=== PATIENT | female | born 1965 | race Caucasian/White ===

== ENCOUNTER 2017-06-21 17:12 | Emergency (ER) | payer SELFPAY ==
[2017-06-21] MEDS ORDERED: Albuterol/Ipratropium 3.0-0.5 MG/3 ML Neb Soln NEB ONE (17:19)
[2017-06-21] MEDS ORDERED: Ketorolac 60 MG/2 ML SDV IM ONE (17:21)
[2017-06-21] MEDS ORDERED: Sodium Chloride 0.9% 1,000 ML IV ONE (18:33)
[2017-06-21] MEDS ORDERED: Folic Acid 1 MG Tab PO ONE (18:34)
[2017-06-21] MEDS ORDERED: Thiamine 100 MG Tab PO ONE (18:34)
[2017-06-21] MEDS ORDERED: Multivitamin Tab PO STA (18:35)
[2017-06-21] MEDS ORDERED: Sodium Chloride 0.9% 10 ML Syringe FLUSH PRN (19:11)
--- NOTE | 2017-06-21 20:12 | EDM.PDOC ---
ED HPI GENERAL MEDICAL PROBLEM - General Chief Complaint: Respiratory Problem Stated Complaint: SOB Time Seen by Provider: 06/21/17 17:20 Source of Information: Reports: Patient, EMS History Limitations: Reports: Intoxication - History of Present Illness INITIAL COMMENTS - FREE TEXT/NARRATIVE: 52 y.o.w.f smoker, came to the ed from a bar after she was drinking from last night till noon today. Pt was intoxicated and was coughing intermittently, dry cough. Pt is currently residing in a [facility] house in [place] and had "off last night", when she decided to drink. No family is present. No N/V/D CP or dizziness. BP 127/76 puse 88 Temp 98. RR 18 O2 sat 98% on RA Onset: Today Onset Date: 06/21/17 Onset Time: 12:00 Duration: Intermittent Location: Reports: Chest, Generalized Quality: Reports: Ache, Burning Severity: Mild Improves with: Reports: Rest Worsens with: Reports: Movement Context: Reports: Other (pt was drinking from yesterday till today noon) Associated Symptoms: Reports: Cough, Shortness of Breath - Related Data Allergies Allergy/AdvReac Type Severity Reaction Status Date / Time Penicillins Allergy Difficulty Verified 06/21/17 17:58 Breathing Home Meds: Home Meds FLUoxetine [PROzac] 20 mg PO DAILY 06/21/17 [History] amLODIPine [Norvasc] 10 mg PO DAILY 06/21/17 [History] Past Medical History Cardiovascular History: Reports: Hypertension Psychiatric History: Reports: Anxiety, Depression Social & Family History - Tobacco Use Smoking Status *Q: Current Every Day Smoker Years of Tobacco use: 20 Packs/Tins Daily: 0.5 - Caffeine Use Caffeine Use: Reports: Coffee - Recreational Drug Use Recreational Drug Use: No ED ROS GENERAL - Review of Systems Review Of Systems: Unable To Obtain (intoxicated) ED EXAM, GENERAL - Physical Exam Exam: See Below Exam Limited By: Intoxication General Appearance: Alert, WD/WN, No Apparent Distress, Mild Distress Eye Exam: Bilateral Eye: Normal Inspection Ears: Normal External Exam Ear Exam: Bilateral Ear: Auricle Normal Nose: Normal Inspection Throat/Mouth: Normal Inspection Head: Atraumatic, Normocephalic Neck: Normal Inspection, Supple, Non-Tender Respiratory/Chest: No Respiratory Distress, Lungs Clear, Normal Breath Sounds, No Accessory Muscle Use Cardiovascular: Normal Peripheral Pulses, Regular Rate, Rhythm, No Edema, No Gallop GI/Abdominal: Normal Bowel Sounds, Soft, Non-Tender, No Organomegaly (Female) Exam: Deferred Rectal (Female) Exam: Deferred Back Exam: Normal Inspection, Full Range of Motion Extremities: Normal Inspection, Normal Range of Motion, Non-Tender, No Pedal Edema Neurological: Alert, Oriented, CN II-XII Intact, Normal Gait, No Motor/Sensory Deficits, Slow to Respond (etoh) Psychiatric: Depressed Mood Skin Exam: Warm, Dry, Intact Lymphatic: No Adenopathy Course - Vital Signs Text/Narrative:: 52 y.o.w.f smoker, came to the ed from a bar after she was drinking from last night till noon today. Pt was intoxicated and was coughing intermittently, dry cough. Pt is currently residing in a [facility] house in [place] and had "off last night", when she decided to drink. No family is present. No N/V/D CP or dizziness. BP 127/76 puse 88 Temp 98. RR 18 O2 sat 98% on RA PE; WNWD W F occ dry cough, no C/P Pt climed ou of her bed Labs: ETOH 0.19 WBC was 13.2 Imaging: CXR NAD Impression: ETOH abuse, dehydration Tx: MVT, Thiamin, Folic acid, NS,Duneb for cough Reexam: Improved, No cough after Duoneb, ETOH on D/C was 0.07 Plan: Hospital [facility] confirmed payment for a txi cap and Hotel because the pt is homeless D/C with instructions Last Recorded V/S: Last Vital Signs Temp 37.1 C 06/21/17 17:20 Pulse 76 06/21/17 21:25 Resp 18 06/21/17 21:25 BP 145/74 H 06/21/17 21:25 Pulse Ox 100 06/21/17 21:25 - Orders/Labs/Meds Orders: Active Orders 24 hr Category Date Time Status Cooling Warming Measures [RC] ASDIRECTED Care 06/21/17 17:22 Active RT Aerosol Therapy [RC] ASDIRECTED Care 06/21/17 17:20 Active Ice Bag [Ice Therapy] [OM.PC] Routine Oth 06/21/17 17:22 Ordered Peripheral IV Insertion Adult [OM.PC] Routine Oth 06/21/17 19:05 Ordered Labs: Laboratory Tests 06/21/17 06/21/17 06/21/17 Range/Units 17:30 17:30 17:30 WBC 13.2 H (4.5-12.0) X10-3/uL RBC 4.73 (3.23-5.20) x10(6)uL Hgb 14.8 (11.5-15.5) g/dL Hct 42.9 (30.0-51.3) % MCV 90.8 (80-96) fL MCH 31.4 (27.7-33.6) pg MCHC 34.5 (32.2-35.4) g/dL RDW 17.5 H (11.5-15.5) % Plt Count 656 H (125-369) X10(3)uL MPV 8.4 (7.4-10.4) fL Neut % (Auto) 56.6 (46-82) % Lymph % (Auto) 33.2 (13-37) % Meigs % (Auto) 8.6 (4-12) % Eos % (Auto) 1 (1.0-5.0) % Baso % (Auto) 0 (0-2) % Neut # (Auto) 7.5 (1.6-8.3) # Lymph # (Auto) 4.4 (0.6-5.0) # Meigs # (Auto) 1.1 (0.0-1.3) # Eos # (Auto) 0.2 (0.0-0.8) # Baso # (Auto) 0.0 (0.0-0.2) # Sodium 141 (135-145) mmol/L Potassium 4.4 (3.5-5.3) mmol/L Chloride 103 (100-110) mmol/L Carbon Dioxide 28 (21-32) mmol/L BUN 9 (7-18) mg/dL Creatinine 0.9 (0.55-1.02) mg/dL Est Cr Clr Drug Dosing TNP Estimated GFR (MDRD) > 60 (>60) BUN/Creatinine Ratio 10.0 (9-20) Glucose 95 (80-116) mg/dL Calcium 8.7 (8.6-10.2) mg/dL Ethyl Alcohol 0.19 H* (<0.03) % 06/21/17 Range/Units 21:10 WBC (4.5-12.0) X10-3/uL RBC (3.23-5.20) x10(6)uL Hgb (11.5-15.5) g/dL Hct (30.0-51.3) % MCV (80-96) fL MCH (27.7-33.6) pg MCHC (32.2-35.4) g/dL RDW (11.5-15.5) % Plt Count (125-369) X10(3)uL MPV (7.4-10.4) fL Neut % (Auto) (46-82) % Lymph % (Auto) (13-37) % Meigs % (Auto) (4-12) % Eos % (Auto) (1.0-5.0) % Baso % (Auto) (0-2) % Neut # (Auto) (1.6-8.3) # Lymph # (Auto) (0.6-5.0) # Meigs # (Auto) (0.0-1.3) # Eos # (Auto) (0.0-0.8) # Baso # (Auto) (0.0-0.2) # Sodium (135-145) mmol/L Potassium (3.5-5.3) mmol/L Chloride (100-110) mmol/L Carbon Dioxide (21-32) mmol/L BUN (7-18) mg/dL Creatinine (0.55-1.02) mg/dL Est Cr Clr Drug Dosing Estimated GFR (MDRD) (>60) BUN/Creatinine Ratio (9-20) Glucose (80-116) mg/dL Calcium (8.6-10.2) mg/dL Ethyl Alcohol 0.07 H (<0.03) % Meds: Medications Discontinued Medications Generic Name Dose Route Start Last Admin Trade Name Cooperq PRN Reason Stop Dose Admin Albuterol/Ipratropium 3 ml 06/21/17 17:19 06/21/17 17:39 Duoneb 3.0-0.5 Mg/3 Ml NEB 06/21/17 17:20 3 ml ONETIME ONE Administration Folic Acid 1 mg 06/21/17 18:34 06/21/17 19:05 Folic Acid PO 06/21/17 18:35 1 mg ONETIME ONE Administration Sodium Chloride 1,000 mls @ 999 mls/hr 06/21/17 18:33 06/21/17 19:10 Normal Saline IV 06/21/17 19:33 999 mls/hr .BOLUS ONE Administration Sodium Chloride 1,000 mls @ 999 mls/hr 06/21/17 20:15 06/21/17 20:15 Normal Saline IV 999 mls/hr ASDIRECTED YUDY Administration Ketorolac Tromethamine 60 mg 06/21/17 17:21 06/21/17 17:39 Toradol IM 06/21/17 17:22 60 mg ONETIME ONE Administration Multivitamins/Minerals/Vitamin C 1 tab 06/21/17 18:35 06/21/17 19:06 Tab-A-Cody PO 06/21/17 18:36 1 tab ONETIME STA Administration Sodium Chloride 10 ml 06/21/17 19:11 06/21/17 19:05 Saline Flush FLUSH 10 ml ASDIRECTED PRN Administration Keep Vein Open Thiamine HCl 100 mg 06/21/17 18:34 06/21/17 19:06 Vitamin B-1 PO 06/21/17 18:35 100 mg ONETIME ONE Administration Departure - Departure Time of Disposition: 21:28 Disposition: Home, Self-Care 01 Condition: Good Clinical Impression: ETOH abuse - Discharge Information Instructions: Chemical Dependency, Alcohol Abuse and Nutrition Referrals: PCP,None [Primary Care Provider] - Forms: ED Department Discharge Additional Instructions: Please increase water intake, NO ETOH! please follow up. Please come back if any symptoms get worse acutely. Please take Thiamine 100mg , Folic acid 1 mg and one tablet of Multivitamin daily. - My Orders Last 24 Hours: My Active Orders 06/21/17 17:20 RT Aerosol Therapy [RC] ASDIRECTED 06/21/17 17:22 Cooling Warming Measures [RC] ASDIRECTED Ice Bag [Ice Therapy] [OM.PC] Routine 06/21/17 19:05 Peripheral IV Insertion Adult [OM.PC] Routine - Assessment/Plan Last 24 Hours: My Active Orders 06/21/17 17:20 RT Aerosol Therapy [RC] ASDIRECTED 06/21/17 17:22 Cooling Warming Measures [RC] ASDIRECTED Ice Bag [Ice Therapy] [OM.PC] Routine 06/21/17 19:05 Peripheral IV Insertion Adult [OM.PC] Routine
[2017-06-21] MEDS ORDERED: Sodium Chloride 0.9% 1,000 ML IV SCH (20:15)
--- NOTE | 2017-06-22 10:39 | CR ---
INDICATION: Cough. CHEST: An AP upright portable view of the chest revealed evidence of exogenous obesity. The heart appears normal in size and shape. Mediastinum was unremarkable. No free air is noted under the hemidiaphragm leaves. A definite active infiltrate or effusion was not identified. IMPRESSION: No acute process. Findings as noted above. MTDD
== END 2017-06-21 21:40 | disposition home or self-care (01) ==
LOC: FB.ED 17:12
DX: F10.129 Alcohol abuse with intoxication, unspecified (principal); E86.0 Dehydration; Y90.0 Blood alcohol level of less than 20 mg/100 ml; I10 Essential (primary) hypertension; F32.9 Major depressive disorder, single episode, unspecified; F17.210 Nicotine dependence, cigarettes, uncomplicated; Z79.899 Other long term (current) drug therapy; Z88.0 Allergy status to penicillin
CPT/HCPCS: 36415; 71010; 80048; 85025; 94640; 96360; 96361; 96372; 99285; A9270; G0480; J1885; J7040; J7050; J7620; 99284